=== PATIENT | female | born 1990 | race African-American/Black ===

== ENCOUNTER 2016-09-18 23:20 | Emergency (ER) | payer OTHER ==
[~2016-09-18] VITALS: Ht 160 cm; Wt 100.7 kg
[~2016-09-18 23:20] MED LIST: ALBUTEROL SULF8.5 GM IH; AMBIEN10 MG PO; AMBIEN5 MG PO; AZITHROMYCIN250 MG1 PO; BIRTH CONTROL; CLONIDINE HCL0.1 MG PO; DEPO-PROVER150 MG/ML IM; HYCODAN SYRUP480 ML PO; MIRALAX17 GM PO; NAPROSYN500 MG PO; PERCOCET 5/31 TABLET PO; POLYTRIM EYE DR10 ML RIGHT EYE; PREDNISONE20 MG PO; ROXICODONE5 MG PO; SPRINTEC1 EACH; XANAX0.25 MG PO; ZOFRAN8 MG PO
[2016-09-19 00:13] LABS: HEMATOCRIT 36.4 % (36.0-46.0); MCH 29.2 PG (29.0-34.0); MCHC 35.2 G/DL (30.0-36.0); MCV 83.1 FL (83-99); RBC DIS.WIDTH-CV 12.1 % (11.8-14.6); RBC DIS.WIDTH-SD 36.5 % (39-53); RED BLOOD COUNT 4.38 M/uL (3.80-5.20); WHITE BLOOD COUNT 11.8 K/uL (4.1-10.2)
[2016-09-19 00:14] LABS: ADD MIUA? YES; BILIRUBIN NEGATIVE; BLOOD NEGATIVE; COLOR YELLOW ((YELLOW)); GLUCOSE (STRIP) NEGATIVE; KETONES 20; LEUKOCYTES NEGATIVE; NITRITE NEGATIVE; PROTEIN (STRIP) 30; SPECIFIC GRAVITY 1.025 (1.000-1.030); UROBILINOGEN 0.2 MG/DL (0.2-1.0)
[2016-09-19 00:23] LABS: CHLORIDE 105 mEq/L (99-109); POTASSIUM 3.6 mEq/L (3.7-5.4); SODIUM 136 mEq/L (136-147)
[2016-09-19 00:25] LABS: GLUCOSE 105 mg/dL (70-99)
[2016-09-19 00:27] LABS: ANION GAP 10 MEQ/L (2-14); TOTAL BILIRUBIN 0.3 mg/dL (0.0-1.0)
[2016-09-19 00:29] LABS: ALKALINE PHOSPHATASE 41 IU/L (3-129); GFR ESTIMATE (CALCULATED) > 59 mL/min/
[2016-09-19 00:30] LABS: UREA NITROGEN (BUN) 6 mg/dL (9-23)
[2016-09-19 00:30] LABS: BACTERIA RARE /HPF; EPITHELIAL CELLS RARE /HPF; MUCUS 2+ /LPF; RED BLOOD CELLS 0-5 /HPF (0-5); UCUL ADDED? NO; WHITE BLOOD CELLS 0-5 /HPF (0-5)
[2016-09-19 01:03] LABS: MEAN PLAT.VOLUME 11.2 uM^3 (9.5-12.4); PLAT.SUFFICIENCY ADEQUATE; PLATELET COUNT 206 K/uL (156-360)
[2016-09-19 01:06] LABS: QUANTITATIVE HCG 35602.5 MIU/ML
[2016-09-19] MEDS ORDERED: BENTYL20 MG PO (02:59)
[2016-09-19 03:21] VITALS: BP 105/74
== END 2016-09-19 03:22 | disposition home or self-care (01) ==
LOC: EME 23:20
DX: O21.8 Other vomiting complicating pregnancy (principal); O26.891 Other specified pregnancy related conditions, first trimester; R19.7 Diarrhea, unspecified; Z3A.13 13 weeks gestation of pregnancy; O99.331 Smoking (tobacco) complicating pregnancy, first trimester; Z72.0 Tobacco use
CPT/HCPCS: 80053; 81003; 84702; 85027; 99281; 99284

== ENCOUNTER 2016-11-05 16:44 | Outpatient (CLI) | payer OTHER ==
[~2016-11-05] VITALS: Ht 162.6 cm; Wt 103.5 kg
[~2016-11-05 16:44] MED LIST changes: +BENTYL20 MG PO
[2016-11-05] MEDS ORDERED: SINGULAIR10 MG PO (17:27)
[2016-11-05] MEDS ORDERED: PROAIR HFA8.5 GM IH (17:27)
[2016-11-05 17:31] VITALS: BP 99/62
[2016-11-05 18:56] LABS: ADD MIUA? NO; BILIRUBIN NEGATIVE; BLOOD NEGATIVE; COLOR YELLOW ((YELLOW)); GLUCOSE (STRIP) NEGATIVE; KETONES NEGATIVE; LEUKOCYTES NEGATIVE; NITRITE NEGATIVE; PROTEIN (STRIP) NEGATIVE; UCUL ADDED? NO; UROBILINOGEN 0.2 MG/DL (0.2-1.0)
[2016-11-05 22:39] LABS: CANDIDA DNA PROBE NEGATIVE; GARDNERELLA DNA PROBE NEGATIVE; INTERNAL CONTROL VALID? YES
== END 2016-11-05 17:45 | disposition home or self-care (01) ==
LOC: LDRP-OP 16:44 → 2WEST 16:46
PROVIDERS: Advanced Practice Midwife
DX: O99.89 Other specified diseases and conditions complicating pregnancy, childbirth and the puerperium (principal); Z3A.20 20 weeks gestation of pregnancy; G89.29 Other chronic pain; M54.5 Low back pain; O99.212 Obesity complicating pregnancy, second trimester; Z68.41 Body mass index [BMI] 40.0-44.9, adult
CPT/HCPCS: 59025; 81003; 87086; 87480; 87510; 87660; G0378

== ENCOUNTER 2016-12-15 00:30 | Outpatient (CLI) | payer OTHER ==
[~2016-12-15 00:30] MED LIST changes: +PROAIR HFA8.5 GM IH; +SINGULAIR10 MG PO
[2016-12-15 00:48] VITALS: BP 115/63
[2016-12-15 00:50] VITALS: BP 115/63
[2016-12-15 02:46] LABS: ADD MIUA? YES; BILIRUBIN NEGATIVE; BLOOD NEGATIVE; COLOR YELLOW ((YELLOW)); GLUCOSE (STRIP) >=500; KETONES NEGATIVE; LEUKOCYTES NEGATIVE; NITRITE NEGATIVE; PROTEIN (STRIP) NEGATIVE; SPECIFIC GRAVITY 1.006 (1.000-1.030); UROBILINOGEN 0.2 MG/DL (0.2-1.0)
[2016-12-15 03:13] LABS: BACTERIA 2+ /HPF; CASTS NONE SEEN /LPF; CRYSTALS NONE SEEN; EPITHELIAL CELLS 1+ /HPF; MUCUS NONE SEEN /LPF; RED BLOOD CELLS NONE SEEN /HPF (0-5); WHITE BLOOD CELLS 0-5 /HPF (0-5)
== END 2016-12-15 02:35 | disposition home or self-care (01) ==
LOC: LDRP-OP 00:30 → 2WEST 00:31 → LDRP-OP 04-25 18:10
PROVIDERS: Advanced Practice Midwife
DX: O99.89 Other specified diseases and conditions complicating pregnancy, childbirth and the puerperium (principal); Z3A.25 25 weeks gestation of pregnancy; R05 Cough; M54.9 Dorsalgia, unspecified
CPT/HCPCS: 59025; 81003; G0378

== ENCOUNTER 2018-01-07 16:23 | Day surgery (SDC) | payer OTHER ==
[~2018-01-07] VITALS: Ht 160 cm; Wt 94.3 kg
[~2018-01-07 16:23] MED LIST changes: +CHROMAGEN,1 CAPSULE PO; +ENDOCET 5-3251 EACH PO; +IBUPROFEN800 MG PO; +TYLENOL PM EX-1 EACH PO
[2018-01-07 17:15] LABS: APPEARANCE CLEAR ((CLEAR)); BILIRUBIN NEGATIVE; BLOOD NEGATIVE; COLOR YELLOW ((YELLOW)); GLUCOSE (STRIP) NEGATIVE; KETONES NEGATIVE; LEUKOCYTES NEGATIVE; NITRITE NEGATIVE; PROTEIN (STRIP) NEGATIVE; SPECIFIC GRAVITY 1.019 (1.000-1.030); UCUL ADDED? NO; UROBILINOGEN 0.2 MG/DL (0.2-1.0)
[2018-01-07 17:16] LABS: HEMOGLOBIN 12.8 G/DL (11.9-15.5); MCHC 33.7 G/DL (30.0-36.0); MCV 83.2 FL (83-99); PLATELET COUNT 231 K/uL (156-360); RBC DIS.WIDTH-CV 12.7 % (11.8-14.6); RBC DIS.WIDTH-SD 38.5 % (39-53); RED BLOOD COUNT 4.57 M/uL (3.80-5.20); WHITE BLOOD COUNT 12.6 K/uL (4.1-10.2)
[2018-01-07 17:25] LABS: ALBUMIN 4.4 g/dL (3.2-4.8)
[2018-01-07 17:26] LABS: CHLORIDE 104 mEq/L (99-109); POTASSIUM 3.6 mEq/L (3.7-5.4); SODIUM 139 mEq/L (136-147)
[2018-01-07 17:28] LABS: GLUCOSE 107 mg/dL (70-99); TOTAL PROTEIN 7.3 g/dL (6.4-8.3)
[2018-01-07 17:30] LABS: TOTAL BILIRUBIN 0.3 mg/dL (0.0-1.0)
[2018-01-07 17:31] LABS: ALKALINE PHOSPHATASE 69 IU/L (3-129)
[2018-01-07 17:32] LABS: CREATININE 0.9 mg/dL (0.6-1.3); GFR ESTIMATE (CALCULATED) > 59 mL/min/
[2018-01-07 17:33] LABS: AST (GOT) 12 IU/L (2-34); UREA NITROGEN (BUN) 10 mg/dL (9-23)
[2018-01-07 17:34] LABS: ALT (GPT) 8 IU/L (3-49)
[2018-01-07 17:35] LABS: LIPASE 21 U/L (1.0-51.0)
[2018-01-07 17:40] LABS: QUANTITATIVE HCG < 4.0 MIU/ML
[2018-01-08 02:59] VITALS: BP 110/67
[2018-01-08 07:50] VITALS: BP 121/72
[2018-01-08 08:26] LABS: BASOPHIL (%) 0.1 % (0-1); EOSINOPHIL (%) 0 % (0-5); HEMATOCRIT 38.4 % (36.0-46.0); HEMOGLOBIN 12.9 G/DL (11.9-15.5); IMMATURE GRANULOCYTE (%) 0.3 % (0.0-0.7); LYMPHOCYTE (%) 4.7 % (15-42); LYMPHOCYTE COUNT 0.5 K/uL (1.0-2.8); MCH 27.8 PG (29.0-34.0); MCHC 33.6 G/DL (30.0-36.0); MCV 82.8 FL (83-99); MONOCYTE (%) 1.2 % (3-12); MONOCYTE COUNT 0.1 K/uL (0-0.8); NEUTROPHIL (%) 93.7 % (45-76); NEUTROPHIL COUNT 10.1 K/uL (1.8-6.4); PLATELET COUNT 244 K/uL (156-360); RBC DIS.WIDTH-CV 12.8 % (11.8-14.6); RBC DIS.WIDTH-SD 38.5 % (39-53); RED BLOOD COUNT 4.64 M/uL (3.80-5.20); WHITE BLOOD COUNT 10.7 K/uL (4.1-10.2)
[2018-01-08 08:53] LABS: CHLORIDE 100 MEQ/L (99-109); CREATININE 0.7 MG/DL (0.6-1.3); GFR ESTIMATE (CALCULATED) > 59 mL/min/; GLUCOSE 127 mg/dL (70-99); POTASSIUM 4.3 MEQ/L (3.7-5.4); SODIUM 137 MEQ/L (136-147); UREA NITROGEN (BUN) 9 mg/dL (9-23)
[2018-01-08] MEDS ORDERED: PERCOCET 5/31 TABLET PO (08:55)
[2018-01-08] MEDS ORDERED: COLACE100 MG PO (08:55)
[2018-01-08 11:45] VITALS: BP 117/72
[2018-01-08 13:46] VITALS: BP 117/72
== END 2018-01-08 14:05 | disposition home or self-care (01) ==
LOC: EME 16:23 → ENRESERV 22:24 → EME 22:32 → EDOF 22:32 → SDC 23:54 → EDOF 01-08 00:44 → 2EAST 01-08 00:44 → EDOF 01-08 00:44 → 2EAST 01-08 02:19
PROVIDERS: Physician Assistant
PROC: 0DTJ4ZZ Resection of Appendix, Percutaneous Endoscopic Approach (ICD-10-PCS; principal; 2018-01-08)
DX: K35.80 Unspecified acute appendicitis (principal); E66.9 Obesity, unspecified; Z68.36 Body mass index [BMI] 36.0-36.9, adult; J45.909 Unspecified asthma, uncomplicated; Z87.891 Personal history of nicotine dependence
CPT/HCPCS: 74176; 80048; 80053; 81003; 83690; 84702; 85025; 85027; 88304; 99281; 99284; G0378; J0131; J0330; J1100; J1170; J1885; J2250; J2405; J2710; J3010; J7030; J7120; J7643; S0074